=== PATIENT | female | born 1955 | race Caucasian/White ===

== ENCOUNTER 2022-06-02 06:18 | Day surgery (SDC) | payer MEDICARE, BC, SELFPAY ==
[2022-06-02] VITALS (9 sets, daily range): BP systolic 133–153; BP diastolic 72–81; PULSE 91–103; RESP 16–20; TEMP 36.6; O2SAT 96–100; BMI 26.3
[2022-06-02] MEDS: CEFAZOLIN 2 GM in 0.9 % SODIUM CHLORIDE Mini-bag 100 ML IVPB (07:12)
[2022-06-02] MEDS: BUPIVACAINE 0.5% 30 ML 5 ML INJECTION (07:19)
[2022-06-02] MEDS: lidocaine HCL 2 % MULTIDOSE 20 ML VIAL 7 ML INJECTION (07:19)
--- NOTE | 2022-06-02 07:35 | SUR.OPER ---
PATIENT QUESTIONS ANSWERED SATISFACTORILY PREOPERATIVELY.? PATIENT BROUGHT TO OR #2 PER WHEELCHAIR.? Patient positioned supine on OR #2 bed.? The perioperative?team supported both arms bilaterally on arm boards. Final approval of positioning by surgeon.? PRIOR TO LOCAL INJECTION, TIME OUT PREFORMED AT 07:18.
--- NOTE | 2022-06-02 07:41 | P.ORPRC_ITS ---
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 Despite appropriate non operative management including flexor tendon sheath corticosteroid injections they continue to have symptoms. Operative intervention was recommended. The risks, benefits alternatives and expected outcomes were discussed in detail. These included but were not limited to: Infection, bleeding, injury to blood vessel or nerve, venous thromboembolism. All questions were answered to their satisfaction. The patient was placed supine on the operating room table. Local anesthesia was established with 0.5% Marcaine without epinephrine and 2% lidocaine without epinephrine. The hand was prepped and draped in usual sterile fashion. The limb was elevated the forearm pneumatic tourniquet was inflated to 250 mm of mercury. A transverse incision was made centered over the base of the middle and ring fingers in the distal palmar crease. Subcutaneous dissection was taken through the palmar fascia to the flexor tendons with the tenotomy scissors. The A1 phil was released with the 15 blade and a tenotomy scissors. Active flexion and extension of the fingers show no catching or locking, no bowstringing of the flexor tendons. The wound was closed with interrupted nylon sutures. A dry dressing was applied the tourniquet was released. Sponge and needle counts were correct x 2. The patient tolerated the procedure well, there were no apparent complications. They were sent to same day surgery in satisfactory condition. Plan: Use of the hand as tolerates. Discontinue the intraoperative dressing on postoperative day 3 and may get the wound wet as tolerates. Follow up in the office in 2 weeks for a wound check and suture removal.
[2022-06-02] MEDS: ETHYL CHLORIDE 1 APPLICATION 1 APPLIC TOPICAL (07:42)
== END 2022-06-02 08:09 | disposition home or self-care (01) ==
PROVIDERS: PCP Family Medicine; Visit Provider Orthopaedic Surgery
PROC: (CPT 26055; principal; 2022-06-02 07:15)
DX: M65.341 Trigger finger, right ring finger (principal); M65.331 Trigger finger, right middle finger; M65.841 Other synovitis and tenosynovitis, right hand
CPT/HCPCS: 26055 ×2; J0690; J3490